=== PATIENT | female | born 1960 | race Caucasian/White ===

== ENCOUNTER 2016-12-14 20:51 | Emergency (ER) | payer MEDICARE ==
[~2016-12-14] VITALS: Ht 160 cm; Wt 106.0 kg
[~2016-12-14 20:51] MED LIST: CEPH-512 PO; PHEN-777 PO
[2016-12-14 20:55] VITALS: BP 147/78; PULSE 63; RESP 28; O2SAT 100
[2016-12-14] MEDS ORDERED: Ondansetron 8 mg ODT Tablet PO ONE (21:05)
--- NOTE | 2016-12-14 21:22 | ED.REPORT ---
HPI-General Illness Date of Service Dec 14, 2016 ED Provider: Jay Munson MD A 56 year old female with a history of anxiety, diabetes, stroke, hypertension and recent spinal surgery presents to the ED complaining of a headache. The pt began experiencing this headache suddenly in the shower one hour ago, following "spinning" dizziness, chest pain, nausea and vomiting. She denies trauma and her sugars are within her normal range per . History is limited by pt condition. Nursing Notes Stated Complaint: DIZZINESS,HEADACHE,LIGHT HEADED Chief Complaint: General Complaint Nursing Notes Reviewed: Yes Allergies: Coded Allergies: codeine (Verified Allergy, Unknown, vomiting, 02/05/16) Scheduled Cephalexin (Keflex) 500 Mg Capsule 500 MG PO QID Scheduled PRN Meclizine (Bonine) 25 Mg Tab.chew 25 MG PO TID PRN PRN vertigo Ondansetron ODT (Ondansetron ODT) 8 Mg Tab.rapdis 8 MG PO QID PRN PRN For Nausea Phenazopyridine (Phenazopyridine) 200 Mg Tablet 200 MG PO TID PRN PRN dysuria Prochlorperazine Maleate (Compazine Suppository) 25 Mg Supp.rect 25 MG RC Q8 PRN PRN For Nausea/Vomiting General Time Seen by MD: 21:20 Chief Complaint Headache, Vomiting Hx Obtained From: Patient, Spouse Arrived By: Walk-in Sudden in Onset?: Yes Onset Occurred: 1 - 4 hours ago Symptom Duration: Since onset Recent Healthcare: No recent hospitalization, Recent doctor visit Similar Sx Previous: No Past Medical History Past Medical History anxiety hypertension diabetes stroke Past Surgical History spinal surgery x3 Smoking History Current Every Day Smoker Social History Alcohol Use: Denies alcohol use Other Social History: Good social support Ambulatory Status Independent Review of Systems Full Review of Systems Respiratory: Denies: Non-productive cough, Shortness of breath Cardiovascular: Reports: Chest pain GI: Reports: Nausea, Vomiting Skin: Denies Rash Neurologic: Reports: Dizziness, Headache Complete sys rev & neg: except as marked. Physical Exam Vital Signs Vital Signs Date Time Temp Pulse Resp B/P Pulse Ox O2 Delivery O2 Flow Rate FiO2 12/14/16 23:30 36.8 78 16 123/73 99 Room Air 12/14/16 20:55 36.8 63 28 147/78 100 Room Air Initial VS: Reviewed General/Constitutional: Awake, Alert screaming Head / Eyes: Atraumatic, Normocephalic, PERRL, EOMI ENT: Atraumatic, Airway patent, Mucous membranes moist Neck: Atraumatic, Supple, Full range of motion Respiratory / Chest: Atraumatic, No respiratory distress Cardiovascular: Heart rate NL Abdomen: Atraumatic Back: Atraumatic, Full range of motion Upper Extremities Upper Extremity / MS: Atraumatic, Full range of motion Lower Extremity / Pelvis / MS: Atraumatic, Full range of motion Skin: Atraumatic, Color NL, No rash, Warm, Dry Neurologic: Oriented X3, Speech NL, No motor deficits, No sensory deficits Psychiatric: Affect NL Interpretation & Diagnostics Lab Results Interpretation Result Diagram: 12/14/16 2146 12/14/16 214 Test 12/14/16 21:46 12/14/16 21:47 White Blood Count 11.9th/mm3 (3.8-10.1) Red Blood Count 4.16mil/mm3 (3.90-5.20) Hemoglobin 11.1g/dL (12.0-15.6) Hematocrit 35.1% (35.0-46.0) Mean Corpuscular Volume 84.4fL (81-100) Mean Corpuscular Hemoglobin 26.7pg (27.0-35.0) Mean Corpuscular Hemoglobin Concent 31.6% (32.0-37.0) Red Cell Distribution Width 17.2% (12.3-15.4) Platelet Count 386bil/L (150-400) Neutrophils (%) (Auto) 59.1% (40-74) Lymphocytes (%) (Auto) 30.2% (14-46) Monocytes (%) (Auto) 9.0% (4-12) Eosinophils (%) (Auto) 1.0% (0-5) Basophils (%) (Auto) 0.2% (0-3) Erythrocyte Sedimentation Rate 44mm/hr (0-40) Sodium Level 137mEq/L (134-144) Potassium Level 3.7mEq/L (3.5-5.2) Chloride Level 100mEq/L (97-108) Carbon Dioxide Level 19mmol/L (18-29) Blood Urea Nitrogen 18mg/dL (6-24) Creatinine 0.80mg/dL (0.57-1.00) Estimat Glomerular Filtration Rate 107mL/min (>59) Glucose Level 311mg/dL (60-99) Calcium Level 9.7mg/dL (8.5-10.1) Magnesium Level 1.9mg/dL (1.6-2.6) Total Bilirubin 0.2mg/dL (0.0-1.2) Aspartate Amino Transf (AST/SGOT) 25U/L (0-50) Alanine Aminotransferase (ALT/SGPT) 24U/L (0-32) Alkaline Phosphatase 104U/L (25-150) Troponin T 0.010ug/L (0.0-0.011) C-Reactive Protein 0.4mg/dL (0.0-0.5) Total Protein 8.1g/dL (6.4-8.4) Albumin 4.3g/dL (3.4-5.0) Hold Chen Top Tube Received (Received) X-Ray Chest Interpretation Chest Xray Interpretation: IMPRESSION: 1. No acute cardiopulmonary disease. Dictated by: Eugene Nunez M.D. on 12/14/2016 at 21:55 Approved by: Eugene Nunez M.D. on 12/14/2016 at 21:55 Interpretation / Wet Read by: Interpret - Radiologist CT Head Interpretation IMPRESSION: No CT evidence of hemorrhage, mass, or acute infarct. Interpretation / Wet Read by: Interpret - Radiologist Re-Eval/Medical Decision Med Decision/Clinical Course 56-year-old with severe anxiety, diabetes, and multiple presentations with headache and multiple other symptoms. She presents now vomiting actively, after onset of vertigo in the shower. She is so overall is to be unable to give history, and all history is obtained from her significant other. This sequence appears to me to be vertigo induced by movement and the shower, causing vomiting, followed by headache. She is neurologically intact. After initial meds for headache and for vomiting, she has calm down considerably but is now insistent on leaving some that she can smoke. CT of her cranium was negative. She reports being improved, although her primary issue now is desire for nicotine, and she is uncooperative with any further care. Discharged in stable condition. Source of Hx: Old records Time of Eval: 23:02 Re-Evaluation/Progress Note: Pt rechecked, who is feeling better and requesting discharge. Time of Eval: 23:15 Patient Status: Condition improved Re-Evaluation/Progress Note: Pt rechecked, who is comfortable. The diagnosis and plan for discharge are further discussed. The pt understands and agrees with the plan. All questions are addressed at this time. Counseled Regarding: Diagnosis, Lab results, Need for follow-up, When/why to return to ED Discharge & Departure Primary Impression: BPPV (benign paroxysmal positional vertigo) Laterality: unspecified laterality Qualified Code: H81.10 - Benign paroxysmal vertigo, unspecified ear Additional Impressions: Vomiting Vomiting type: unspecified Vomiting Intractability: non-intractable Nausea presence: with nausea Qualified Code: R11.2 - Nausea with vomiting, unspecified Anxiety reaction Headache Headache type: unspecified Headache chronicity pattern: acute headache Intractability: not intractable Qualified Code: R51 - Headache Disposition: Home Discharge Condition All VS Reviewed: Yes Condition: Stable Patient Instructions: Acute Nausea and Vomiting (ED), Benign Paroxysmal Positional Vertigo (ED) Additional Instructions: If you have additional dizziness, meclizine can be helpful. You can take it three times daily. Follow-up with your doctor in the office. If the dizziness persists, he will need to see ear nose and throat. Your doctor can refer you. Return if any immediate issues. Your CT scan does not show any evidence of bleeding. Your neurologic function appears normal. We do not see any evidence of dangerous causes for your dizziness or vomiting. Vomiting can be controlled with ondansetron. You can also use a Compazine suppository if ondansetron fails to control your vomiting. Compazine is also helpful for migraine-type headaches. Referrals: Erasmo Che MD (PCP) Percy Attestation Portions of this note were transcribed by Sonia Amanda. I, Dr. Munson personally performed the history, physical exam and medical decision-making; I reviewed and confirmed the accuracy of the information in the transcribed note. Signed by: Percy Dunham, 12/14/2016 and 2323. copies to: Erasmo Che MD, Christopher W MD Dec 14, 2016 21:22 SONIA AMANDA Dec 14, 2016 21:32
[2016-12-14] MEDS ORDERED: 0.9% Sodium Chloride 1,000 ML IV ONE (21:27)
[2016-12-14] MEDS ORDERED: Haloperidol 5 mg/mL Inj IVPUSH ONE (21:30)
[2016-12-14] MEDS ORDERED: Dexamethasone 10 mg/mL Inj IVPUSH ONE ×2 (21:30→21:55)
[2016-12-14 21:50] LABS: BASOPHILS % (AUTO) 0.2 % (0-3); Mean Corpuscular Hemoglobin 26.7 pg (27.0-35.0); Mean Corpuscular Volume 84.4 fL (81-100); NEUTROPHILS % (AUTO) 59.1 % (40-74); Platelet Count 386 bil/L (150-400)
[2016-12-14] MEDS ORDERED: Promethazine Inj 12.5 MG in Dextrose 5%-Pha MIX 50 ML IV ONE (21:55)
--- NOTE | 2016-12-14 21:57 | DRSVH ---
PROCEDURE: X-RAY CHEST ONE VIEW, PORTABLE ([id number]) INDICATIONS: CHEST PAIN TECHNIQUE: One view of the chest was acquired. COMPARISON: [facility], CR, CHEST 2VW, 05/05/2009, 12:48. FINDINGS: Surgical changes and devices: None. Lungs and pleura: No pleural effusions or pneumothorax. Lungs are clear. Mediastinum: Mediastinal contours appear normal. Heart size is normal. Bones and chest wall: No suspicious bony lesions. Overlying soft tissues appear unremarkable. IMPRESSION: 1. No acute cardiopulmonary disease. Dictated by: Eugene Nunez M.D. on 12/14/2016 at 21:55 Approved by: Eugene Nunez M.D. on 12/14/2016 at 21:55
[2016-12-14 22:11] LABS: TROPONIN T 0.01 ug/L (0.0-0.011)
[2016-12-14 22:22] LABS: Magnesium 1.9 mg/dL (1.6-2.6)
[2016-12-14] MEDS ORDERED: PROC25SU30 RC (23:10)
[2016-12-14] MEDS ORDERED: ONDA8TAB10 PO (23:10)
[2016-12-14] MEDS ORDERED: MECL-114 PO (23:11)
[2016-12-14 23:30] VITALS: BP 123/73; PULSE 78; RESP 16; O2SAT 99
--- NOTE | 2016-12-15 08:01 | DRSVH ---
PROCEDURE: CT BRAIN WITHOUT CONTRAST ([id number]) INDICATIONS: acute layton, vertigo TECHNIQUE: Noncontrast 4.5 mm thick angled axial sections acquired from the foramen magnum to the vertex, with c oronal reformats. COMPARISON: None. FINDINGS: Image quality: Excellent. CSF spaces: Basal cisterns are patent. No extra-axial fluid collections. The ventricles are symmet augustin in size and shape. Brain: No intracranial bleeds or masses. There is cerebral volume loss for age, with resultant vent ricular and sulcal prominence. There are periventricular and deep white matter chronic small vessel ischemic changes. There is intracranial internal carotid artery atherosclerosis. Skull and face: Calvarium and visualized facial bones appear intact, without suspicious lesions. Sinuses: Visualized sinuses and mastoids are clear. IMPRESSION: No acute intracranial process. Dictated by: Pavan Squires M.D. on 12/15/2016 at 7:56 Approved by: Pavan Squires M.D. on 12/15/2016 at 7:59
== END 2016-12-14 23:31 | disposition home or self-care (01) ==
LOC: SED 20:51
DX: H81.10 Benign paroxysmal vertigo, unspecified ear (principal); F41.1 Generalized anxiety disorder; R51 Headache; R11.2 Nausea with vomiting, unspecified; R07.9 Chest pain, unspecified; I10 Essential (primary) hypertension; E11.9 Type 2 diabetes mellitus without complications; F17.200 Nicotine dependence, unspecified, uncomplicated; Z86.73 Personal history of transient ischemic attack (TIA), and cerebral infarction without residual deficits; Z98.890 Other specified postprocedural states; Z88.5 Allergy status to narcotic agent
CPT/HCPCS: 36415; 70450; 71010; 80053; 83735; 84484; 85025; 85651; 86140; 96361; 96374; 96375; 99285; J1100; J1200; J1630; J1885; J2550; J7030